=== PATIENT | male | born 1960 | race African-American/Black ===

== ENCOUNTER 2023-09-18 10:24 | Outpatient (CLI) | payer OTHER, MEDICAID | END 2023-09-18 10:25 | disposition home or self-care (01) | LOC: CSHWCC 10:24 | PROVIDERS: ATTEND Preventive Medicine Undersea and Hyperbaric Medicine | DX: E08.21 Diabetes mellitus due to underlying condition with diabetic nephropathy (principal); E11.621 Type 2 diabetes mellitus with foot ulcer; L97.509 Non-pressure chronic ulcer of other part of unspecified foot with unspecified severity | CPT/HCPCS: 99213; G0463 ==